=== PATIENT | female | born 1950 | race American Indian/Alaskan Native ===

== ENCOUNTER 2017-09-26 14:05 | Emergency (ER) | payer OTHER ==
[2017-09-26 14:06] VITALS: BMI 27.8
--- NOTE | 2017-09-26 14:56 | ED PDOC ---
Arrival/HPI - General Chief Complaint: Flu-like Symptoms Time Seen by Provider: 09/26/17 14:37 Historian: Patient EM Caveat: Unstable Vital Signs - History of Present Illness Narrative History of Present Illness (Text): 09/26/17 14:50 Pt is a 67 year old female with HTN, DMII that presents to the ED for complaints of subjective fever, body aches, headache, nausea and vomiting (1 cup last night) x 1 day. Pt was seen at Dr. Holder's office today and sent to the ED for evaluation. Pt states she received the Flu vaccine last and has felt 'off' since then. Pt also reports diarrhea today but denies blood in stool, change in urine. Reports mild heartburn but states this is her baseline as she has GERD. 09/26/17 15:01 Time/Duration: 24 hours Symptom Onset: Gradual Symptom Course: Unchanged Quality: Pressure Severity Level: Mild Activities at Onset: Rest Context: Home Past Medical History - Provider Review Nursing Documentation Reviewed: Yes - Travel History Have you recently traveled outside [place] w/in the past 3 mons?: No - Infectious Disease Hx of Infectious Diseases: None - Cardiac Hx Pacemaker: No - Pulmonary Hx Respiratory Disorders: No - Neurological Hx Neurological Disorder: No - HEENT Hx HEENT Disorder: No - Renal Hx Renal Disorder: No - Endocrine/Metabolic Hx Endocrine Disorders: Yes Hx Diabetes Mellitus Type 2: Yes - Hematological/Oncological Hx Blood Transfusions: No - Integumentary Hx Dermatological Disorder: No - Musculoskeletal/Rheumatological Hx Falls: No - Gastrointestinal Hx Gastrointestinal Disorders: Yes Other/Comment: reflux - Genitourinary/Gynecological Hx Genitourinary Disorders: No - Psychiatric Hx Emotional Abuse: No Hx Physical Abuse: No Hx Substance Use: No - Surgical History Other/Comment: hysterectomy - Anesthesia Hx Anesthesia Reactions: No Hx Malignant Hyperthermia: No - Suicidal Assessment Feels Threatened In Home Enviroment: No Family/Social History - Physician Review Nursing Documentation Reviewed: Yes Family/Social History: Unknown Family HX Smoking Status: Never Smoked Hx Alcohol Use: No Hx Substance Use: No Allergies/Home Meds Allergies/Adverse Reactions: Allergies No Known Allergies Allergy (Unverified 09/19/14 13:09) Home Medications: Home Meds Medication Instructions Recorded Confirmed Amlodipine Besylate/Benazepr 1 cap PO DAILY 09/19/14 09/26/17 [Amlodipine Besylate and Benazepril HCl 2.5 mg] Carvedilol 6.25 mg PO DAILY 09/19/14 09/26/17 Etanercept [Enbrel] 50 mg SC YURY 09/19/14 09/26/17 Folic Acid 1 mg PO DAILY 09/19/14 09/26/17 Glyburide/Metformin HCl 1 tab PO DAILY 09/19/14 09/26/17 [Glyburide-Metformin 5-500 mg] Hydrochlorothiazide/Telmisar 1 tab PO DAILY 09/19/14 09/26/17 [Micardis Hct 12.5 mg-40 mg] Methotrexate 20 mg PO YURY 09/19/14 09/26/17 Review of Systems - Physician Review All systems were reviewed & negative as marked: Yes - Review of Systems Constitutional: Fatigue, Fevers Eyes: Normal ENT: Rhinorrhea Respiratory: Normal Cardiovascular: Normal, Other (heartburn (not a new symptom)) Gastrointestinal: Abdominal Pain, Diarrhea, Vomiting, Appetite Changes Genitourinary Female: Normal Musculoskeletal: Normal Skin: Normal Neurological: Normal Endocrine: Normal Hemo/Lymphatic: Normal Psychiatric: Normal Physical Exam Vital Signs Reviewed: Yes Vital Signs Temp Pulse Resp BP Pulse Ox 09/26/17 17:23 72 18 121/65 95 09/26/17 16:10 98.2 F 70 18 128/62 97 09/26/17 14:20 100.4 F H 77 16 114/65 99 Temperature: Febrile Blood Pressure: Normal Pulse: Regular Respiratory Rate: Normal Appearance: Positive for: Non-Toxic, Comfortable Pain Distress: Mild Mental Status: Positive for: Alert and Oriented X 3 - Systems Exam Head: Present: Atraumatic, Normocephalic Pupils: Present: PERRL Extroacular Muscles: Present: EOMI Conjunctiva: Present: Normal Mouth: Present: Moist Mucous Membranes Pharnyx: Present: Normal Nose (Internal): Present: Normal Inspection Neck: Present: Normal Range of Motion Respiratory/Chest: Present: Clear to Auscultation, Good Air Exchange. No: Respiratory Distress, Accessory Muscle Use Cardiovascular: Present: Regular Rate and Rhythm, Normal S1, S2. No: Murmurs Abdomen: Present: Tenderness (mild tenderness throughout), Normal Bowel Sounds. No: Distention, Peritoneal Signs Back: Present: Normal Inspection Upper Extremity: Present: Normal Inspection. No: Cyanosis, Edema Lower Extremity: Present: Normal Inspection. No: Edema Neurological: Present: GCS=15, CN II-XII Intact, Speech Normal Skin: Present: Warm, Dry, Normal Color. No: Rashes Psychiatric: Present: Alert, Oriented x 3, Normal Insight, Normal Concentration Medical Decision Making ED Course and Treatment: 09/26/17 14:56 Impression Pt is a 67 year old female with HTN, DMII that presents to the ED for complaints of subjective fever, body aches, headache, nausea and vomiting (1 cup last night) x 1 day. On PE, pt has mild diffuse abdominal tenderness on palpation, normal BS Plan Rapid flu cbc, cmp, ua Progress Note Pt resting in bed comfortably and reports feeling better since taking tylenol and zofran Encouraged pt to drink; water placed in room; oral challenge after zofran Temperature trending down and afebrile now Spoke with Dr. Stuart and advised likely discharge as fever controlled and oral fluid intake tolerated well. 09/27/17 12:56 - Lab Interpretations Lab Results: 09/26/17 14:57 09/26/17 14:57 Lab Results 09/26/17 15:17: Influenza Typ A,B (EIA) Negative for flu a/b 09/26/17 14:57: Sodium 142, Potassium 3.7, Chloride 103, Carbon Dioxide 30, Anion Gap 13, BUN 10, Creatinine 0.8, Est GFR ( Amer) > 60, Est GFR (Non- Af Amer) > 60, Random Glucose 106, Calcium 10.1, Total Bilirubin 0.4, AST 36, ALT 37, Alkaline Phosphatase 90, Total Protein 7.7, Albumin 3.9, Globulin 3.9, Albumin/Globulin Ratio 1.0 L 09/26/17 14:57: Urine Color Yellow, Urine Appearance Clear, Urine pH 6.0, Ur Specific [place] 1.020, Urine Protein Negative, Urine Glucose (UA) Negative, Urine Ketones Negative, Urine Blood Negative, Urine Nitrate Negative, Urine Bilirubin Negative, Urine Urobilinogen 0.2, Ur Leukocyte Esterase Trace H, Urine RBC 0 - 2, Urine WBC 0 - 2, Ur Epithelial Cells 0 - 2, Urine Bacteria Mod 09/26/17 14:57: WBC 5.6, RBC 4.09, Hgb 11.2 L, Hct 34.0 L, MCV 83.1, MCH 27.4, MCHC 32.9, RDW 14.3, Plt Count 153, MPV 10.3 I have reviewed the lab results: Yes Interpretation: All labs normal - EKG Interpretation Interpreted by ED Physician: Yes (NSR with a rate of 81, non-specific T-wave abnormality) - Medication Orders Current Medication Orders: Discontinued Medications Acetaminophen (Tylenol 325mg Tab) 650 mg PO STAT STA Stop: 09/26/17 15:04 Last Admin: 09/26/17 15:24 Dose: 650 mg MAR Pain/Vitals Document 09/26/17 15:24 OCS (Rec: 09/26/17 15:24 OCS [id number]) Pain Reassessment Is This A Pain ReAssessment? Yes Sleep Is patient sleeping during reassessment? No Presence of Pain Presence of Pain Yes Ondansetron HCl (Zofran Tab) 4 mg PO STAT STA Stop: 09/26/17 15:09 Last Admin: 09/26/17 15:24 Dose: 4 mg Oseltamivir Phosphate (Tamiflu Cap) 75 mg PO BID STA PRN Reason: Protocol Stop: 09/26/17 16:57 Last Admin: 09/26/17 17:23 Dose: 75 mg Disposition/Present on Arrival - Present on Arrival Any Indicators Present on Arrival: Yes History of DVT/PE: No History of Uncontrolled Diabetes: Yes Urinary Catheter: No History Surgical Site Infection Following: None - Disposition Have Diagnosis and Disposition been Completed?: Yes Diagnosis: Influenza Disposition: HOME/ ROUTINE Disposition Time: 17:15 Patient Plan: Discharge Condition: STABLE Discharge Instructions (ExitCare): Flu, Adult (DC) Additional Instructions: Sheri Anaya, Please take the medication that we have prescribed as directed. If you experience any alarming symptoms, such as shortness of breath, chest pain or high fever, return to the emergency department immediately. Please stay well hydrated by drinking plenty of fluids and getting rest. If you have any burning on urination, frequency of urination or lower abdominal pain, please fill the prescription for the take the antibiotic, Macrobid. Please follow up with Dr. Stuart in the next 2 days. Be Well Prescriptions: Acetaminophen [Tylenol 325mg tab] 650 mg PO Q6 3 Days #24 tab Nitrofurantoin Macrocrystals [Macrobid] 100 mg PO BID 7 Days #14 cap Ondansetron [Zofran] 4 mg PO Q8H #15 tab Oseltamivir Phosphate [Tamiflu] 75 mg PO BID 5 Days #10 capsule Referrals: Emilee Cruz, [Non-Staff] - Follow up with primary Forms: [facility] [employer] [facility] ([place]ian), WORK NOTE
[2017-09-26 15:14] LABS: HEMOGLOBIN 11.2 g/dL (12.0-16.0); MEAN CELL VOLUME 83.1 fl (80.0-105.0); MEAN CORPUSCULAR HEMOGLOBIN 27.4 pg (25.0-35.0); MEAN CORPUSCULAR HGB CONC 32.9 g/dl (31.0-37.0); MEAN PLATELET VOLUME 10.3 fl (7.0-11.0); RBC 4.09 10^6/uL (3.5-6.1); RED CELL DISTRIBUTION WIDTH 14.3 % (11.5-14.5); WHITE BLOOD COUNT 5.6 10^3/ul (4.5-11.0)
[2017-09-26 15:27] LABS: ALBUMIN 3.9 g/dL (3.0-4.8); ALT/SGPT 37 U/L (7-56); AST/SGOT 36 U/L (14-36); BLOOD UREA NITROGEN 10 mg/dL (7-21); CALCIUM 10.1 mg/dL (8.4-10.5); GFR AFRICAN-AMERICAN > 60; GFR NON-AFRICAN AMERICAN > 60
[2017-09-26 15:58] LABS: URINE BILIRUBIN NEGATIVE (NEGATIVE); URINE BLOOD NEGATIVE (NEGATIVE); URINE GLUCOSE (UA) NEGATIVE (NEGATIVE); URINE LEUKOCYTE ESTERASE TRACE Leu/uL (NEGATIVE); URINE NITRATE NEGATIVE (NEGATIVE); URINE PROTEIN NEGATIVE mg/dL (<30 mg/dL); URINE UROBILINOGEN 0.2 E.U./dL (<1 E.U./dL)
[2017-09-26 16:11] LABS: URINE APPEARANCE CLEAR (CLEAR); URINE COLOR YELLOW (YELLOW)
[2017-09-26 16:15] VITALS: RESP 18; TEMP 98.2
[2017-09-26 16:42] LABS: URINE RBC 0 - 2 /hpf (0-2); URINE WBC 0 - 2 /hpf (0-6)
[2017-09-26 16:43] LABS: URINE BACTERIA MOD (NEG); URINE EPITHELIAL CELLS 0 - 2 /hpf (0-5)
[2017-09-26 17:23] VITALS: BP 121/65; PULSE 72; O2SAT 95
--- NOTE | 2017-09-26 21:12 | CARD ---
APPROVED REPORT EKG Measurement Heart [id number] <Conclusion> Normal sinus rhythm Minimal voltage criteria for LVH, may be normal variant Nonspecific T wave abnormality Abnormal ECG
== END 2017-09-26 18:19 | disposition home or self-care (01) ==
LOC: ED 14:05
DX: J11.1 Influenza due to unidentified influenza virus with other respiratory manifestations (principal); I10 Essential (primary) hypertension; E11.9 Type 2 diabetes mellitus without complications